=== PATIENT | female | born 1935 | race Caucasian/White ===

== ENCOUNTER 2021-03-26 21:45 | Inpatient (IN) | payer MEDICARE ==
[~2021-03-26] VITALS: Ht 165.1 cm; Wt 64.1 kg
[2021-03-26 21:46] VITALS: BP 173/69
[2021-03-26] MEDS ORDERED: FERROUS SULFAT325 MG PO (21:51)
[2021-03-26] MEDS ORDERED: VITAMIN D 22000 UNIT PO (21:52)
[2021-03-26] MEDS ORDERED: MERIBIN5 MG PO (21:52)
--- NOTE | 2021-03-26 22:04 | NUR ---
PT TO CT.
[2021-03-26 22:13] LABS: BASOPHILS 0.9 % (0-2); EOSINOPHILS 0.4 % (0-7); HEMATOCRIT 42.1 % (36.0-48.0); HEMOGLOBIN 14.4 g/dL (12-16); LYMPHOCYTES 25.3 % (15-50); MCHC 34.2 g/dL (31.0-37.0); MCV 90.7 fL (80.0-100.0); MEAN PLATELET VOLUME 9.2 fL (7.4-10.4); MONOCYTES 10.1 % (2-11); NEUTROPHILS 63.3 % (40-80); PLATELET COUNT 275 10x3/uL (130-400); RBC 4.64 10x6/uL (4.00-5.40); RDW 13.4 % (11.5-14.5); WBC 10.1 10x3/uL (4.8-10.8)
[2021-03-26 22:24] LABS: APTT 33.8 SECONDS (22.8-39.4); CALC OSMOLALITY 269 mosm/kg (275-300); CALCIUM 9.1 mg/dL (8.5-10.1); CARBON DIOXIDE 19.8 mmol/L (21.0-32.0); CHLORIDE - SERUM 102 mmol/L (98-107); CREATININE - SERUM 0.9 mg/dL (0.6-1.3); GLUCOSE 87 mg/dL (74-106); INR 1.19 (0.85-1.17); POTASSIUM - SERUM 4.7 mmol/L (3.5-5.1); SODIUM 135 mmol/L (136-145); UREA NITROGEN 14 mg/dL (7-18); eGFR NON AFRICAN AMERICAN 63 mL/min (90-120)
[2021-03-26 22:28] VITALS: BP 173/84
[2021-03-26 22:41] LABS: ALKALINE PHOSPHATASE 74 U/L (30-120); ALT (SGPT) 25 U/L (10-68); BILIRUBIN - TOTAL 1.21 mg/dL (0.2-1.3); CKMB 3.1 U/L (0.0-3.6); CREATINE KINASE 349 UL (21-215); MAGNESIUM - SERUM 2.3 mg/dL (1.8-2.4); PROTEIN - SERUM 7.6 g/dL (6.4-8.2); THYROID STIMULATING HORMONE 4.04 uIU/mL (0.36-3.74)
[2021-03-26 22:42] LABS: TROPONIN-I < 0.017 ng/mL (0.000-0.060)
[2021-03-26 23:53] VITALS: BP 164/89
[2021-03-27] MEDS ORDERED: SYNTHROID88 MCG PO (00:49)
[2021-03-27 01:13] VITALS: BP 125/74
[2021-03-27 01:20] VITALS: BP 163/70
[2021-03-27 04:31] VITALS: BP 128/66
[2021-03-27 04:46] LABS: CKMB 2.7 U/L (0.0-3.6); CREATINE KINASE 271 UL (21-215); TROPONIN-I 0.029 ng/mL (0.000-0.060)
[2021-03-27 06:48] LABS: BASOPHILS 0.2 % (0-2); EOSINOPHILS 0.6 % (0-7); HEMATOCRIT 40.8 % (36.0-48.0); HEMOGLOBIN 13.7 g/dL (12-16); IMMATURE GRANULOCYTES 0.2 % (0-5); LYMPHOCYTE ABS# 1.98 10x3/uL (1.18-3.74); LYMPHOCYTES 22.4 % (15-50); MCH 30.6 pg (26.0-34.0); MCHC 33.6 g/dL (31.0-37.0); MCV 91.1 fL (80.0-100.0); MEAN PLATELET VOLUME 10.8 fL (7.4-10.4); MONOCYTES 10.5 % (2-11); NEUTROPHIL ABS# 5.82 10x3/uL (1.56-6.13); NEUTROPHILS 66.1 % (40-80); PLATELET COUNT 284 10x3/uL (130-400); RBC 4.48 10x6/uL (4.00-5.40); RDW 13.3 % (11.5-14.5); WBC 8.8 10x3/uL (4.8-10.8)
[2021-03-27 07:20] LABS: BILIRUBIN - TOTAL 0.92 mg/dL (0.2-1.3); CALCIUM 8.5 mg/dL (8.5-10.1); CHOL - HDL RATIO 4.4 ratio (2.3-4.1); CREATININE - SERUM 0.8 mg/dL (0.6-1.3); LDL-HDL RATIO 3.1 ratio (1.5-3.5); MAGNESIUM - SERUM 2.3 mg/dL (1.8-2.4); PHOSPHOROUS 2.9 mg/dL (2.5-4.9); PROTEIN - SERUM 6.8 g/dL (6.4-8.2)
[2021-03-27 07:39] LABS: POTASSIUM - SERUM 3.8 mmol/L (3.5-5.1)
[2021-03-27 08:17] LABS: ANION GAP 18.1 mmol/L (8-16); CARBON DIOXIDE 18.7 mmol/L (21.0-32.0)
[2021-03-27 08:18] LABS: ALBUMIN 3.7 g/dL (3.4-5.0)
[2021-03-27 10:23] LABS: CREATINE KINASE 232 UL (21-215)
[2021-03-27 10:26] LABS: TROPONIN-I < 0.017 ng/mL (0.000-0.060)
--- NOTE | 2021-03-27 11:02 | NUR ---
0700 BEDSIDE SHIFT REPORT RECEIVED AWAKE ALERT REMOVED TELEMETRY FOR MRI
--- NOTE | 2021-03-27 11:04 | NUR ---
0833 RETURN FROM MRI
--- NOTE | 2021-03-27 11:20 | NUR ---
Velia SHAH AT BEDSIDE EXAMINING PATIENT FAMILY MEMBERS PRESENT ASKING DR KATE
--- NOTE | 2021-03-27 11:22 | NUR ---
1100 DR MARTINEZ ROUNDING ON PATIENT
[2021-03-27 16:14] VITALS: BP 138/72
[2021-03-27 16:40] LABS: CKMB 2.1 U/L (0.0-3.6); CREATINE KINASE 195 UL (21-215)
[2021-03-27 16:41] LABS: TROPONIN-I < 0.017 ng/mL (0.000-0.060)
[2021-03-27 20:35] VITALS: BP 156/75
[2021-03-28 01:21] VITALS: BP 135/61
[2021-03-28 05:28] VITALS: BP 143/72
--- NOTE | 2021-03-28 08:14 | NUR ---
REHAB PRESCREEN RECEIVED. PATIENT IS AMBULATING 250 FEET WITH NO ASSISTIVE DEVICE AND ONLY CONTACT GUARD ASSIST. SHE WAS DOCUMENTED TO HAVE NO SPEECH DEFICIT. HER OCCUPATIONAL THERAPY EVALUATION IS STILL PENDING, AND EVEN AFTER THIS IS COMPLETED, THE PATIENT WILL NOT SHOW A NEED FOR 3 HOURS OF THERAPY, AT LEAST 5 DAYS A WEEK. THEREFOR, SHE WILL NOT MEET THE REQUIREMENTS FOR INPATIENT REHAB. THANK YOU FOR THIS REFERRAL. GEN VILLARREAL RN CLINICAL LIAISON, INPATIENT REHAB.
--- NOTE | 2021-03-28 08:49 | NUR ---
PT RESTING WITH EYES CLOSED, AWAKENS EASILY TO NURSE ENTERING ROOM. FAMILY AT BEDSIDE. PT RR EVEN NON LABORED ON ROOM AIR. PT DENIES ANY NEEDS AT THIS TIME. NO PAIN REPORTED. CLWR.
[2021-03-28 08:54] LABS: BASOPHILS 0.6 % (0-2); EOSINOPHILS 1.4 % (0-7); HEMATOCRIT 40.3 % (36.0-48.0); HEMOGLOBIN 13.4 g/dL (12-16); LYMPHOCYTES 19.2 % (15-50); MCH 30.2 pg (26.0-34.0); MCHC 33.1 g/dL (31.0-37.0); MCV 91.2 fL (80.0-100.0); MEAN PLATELET VOLUME 8.6 fL (7.4-10.4); MONOCYTES 9.3 % (2-11); NEUTROPHILS 69.5 % (40-80); PLATELET COUNT 262 10x3/uL (130-400); RBC 4.42 10x6/uL (4.00-5.40); RDW 13.5 % (11.5-14.5); WBC 8.8 10x3/uL (4.8-10.8)
[2021-03-28 08:56] LABS: ALBUMIN 3.2 g/dL (3.4-5.0); ANION GAP 15.9 mmol/L (8-16); BILIRUBIN - TOTAL 0.58 mg/dL (0.2-1.3); CALCIUM 8.4 mg/dL (8.5-10.1); CREATININE - SERUM 0.8 mg/dL (0.6-1.3); MAGNESIUM - SERUM 2.1 mg/dL (1.8-2.4); PHOSPHOROUS 3.1 mg/dL (2.5-4.9); POTASSIUM - SERUM 3.9 mmol/L (3.5-5.1); PROTEIN - SERUM 6.4 g/dL (6.4-8.2)
[2021-03-28 09:00] VITALS: BP 148/85
[2021-03-28 10:12] VITALS: Ht 165.1 cm; Wt 64.1 kg
[2021-03-28 12:00] VITALS: BP 148/85
--- NOTE | 2021-03-28 19:10 | NUR ---
RECEIVED BEDSIDE REPORT. ROUNDING COMPLETE. PATIENT IS ALERT AND ORIENTED, RESTING COMFORTABLY IN BED. RESPIRATIONS ARE EVEN AND UNLABORED. NO S/S OF DISTRESS. NO C/O PAIN. NEEDS MET. WILL CPOC.
[2021-03-28 21:22] VITALS: BP 130/62
--- NOTE | 2021-03-28 22:46 | NUR ---
PATIENT REMOVED HER IV. PATIENT STATED,"SHE DOESN'T NEED IT ANYMORE." PATIENT REFUSES TO HAVE ANOTHER IV PLACED. SHE STATES, "SHE IS GOING HOME TOMORROW."
[2021-03-29 00:04] VITALS: BP 127/71
[2021-03-29 05:10] VITALS: BP 146/75
[2021-03-29 05:41] LABS: BASOPHILS 0.8 % (0-2); EOSINOPHILS 2.1 % (0-7); HEMOGLOBIN 13.1 g/dL (12-16); LYMPHOCYTES 24.1 % (15-50); MCH 30.9 pg (26.0-34.0); MCHC 33.6 g/dL (31.0-37.0); MCV 92.1 fL (80.0-100.0); MEAN PLATELET VOLUME 8.3 fL (7.4-10.4); MONOCYTES 8.1 % (2-11); NEUTROPHILS 64.9 % (40-80); PLATELET COUNT 261 10x3/uL (130-400); RBC 4.23 10x6/uL (4.00-5.40); RDW 13.6 % (11.5-14.5); WBC 8.8 10x3/uL (4.8-10.8)
[2021-03-29 06:25] LABS: ANION GAP 14.6 mmol/L (8-16); BILIRUBIN - TOTAL 0.6 mg/dL (0.2-1.3); CALCIUM 8.3 mg/dL (8.5-10.1); CARBON DIOXIDE 21.2 mmol/L (21.0-32.0); CREATININE - SERUM 0.9 mg/dL (0.6-1.3); MAGNESIUM - SERUM 2.1 mg/dL (1.8-2.4); PHOSPHOROUS 3.4 mg/dL (2.5-4.9); POTASSIUM - SERUM 3.8 mmol/L (3.5-5.1); PROTEIN - SERUM 6.1 g/dL (6.4-8.2)
[2021-03-29 08:00] VITALS: BP 128/67
--- NOTE | 2021-03-29 08:28 | NUR ---
PT AWAKENS EASILY TO NURSE ENTERING ROOM. RR EVEN NON LABORED ON ROOM AIR. PT AWAKE AND ALERT, ORIENTED. FAMILY AT BEDSIDE. PT GIVEN AM MEDS WITH WATER. VSS. PT DENIES ANY PAIN OR NEEDS. CLWR.
[2021-03-29] MEDS ORDERED: LISINOPRIL2.5 MG PO (10:44)
[2021-03-29] MEDS ORDERED: PLAVIX75 MG PO (10:44)
[2021-03-29] MEDS ORDERED: COREG 3.1253.125 MG PO (10:45)
--- NOTE | 2021-03-29 12:55 | NUR ---
DC INSTRUCTIONS GIVEN AT THIS TIME. PT STATES UNDERSTANDING. INSTRUCTIONS REGARDING MEDICATIONS AND FOLLOW UP APPOINTMENTS. NO QUESTIONS VOICED, SON AT BEDSIDE. PT GETTING DRESSED AND GATHERING BELONGINGS.
--- NOTE | 2021-03-29 13:10 | NUR ---
PT WHEELED TO PRIVATE VEHICLE WITH ALL BELONGINGS AND SON. NO DISTRESS NOTED ON DEPARTURE.
--- NOTE | 2021-03-29 16:38 | MORECARE ---
CASE MANAGEMENT DISCHARGE SUMMARY PATIENT: BRENDAN ONEILL TABITHA UNIT: [id number] ADM DATE: 03/26/21 AGE: 85 : 36 SEX: F ROOM/BED: D.5112 AUTHOR: MILO LEE PHYSICIAN: REFERRING PHYSICIAN: ANDRES BRIGHT MD DATE OF SERVICE: 03/29/21 Case Management Discharge Planning Summary COMMENTS ENTERED DATE: 03/29/21 11:02 CT COMMENT TYPE: Discharge Planning REVIEWER: Ximena Parks CM met with patient 03/28/21 to complete discharge planning assessment and offer availability of needed services. Patient states that she lived independently at home prior to admission. Pt verified that home environment is safe and has electricity and running water. Patient denies need for transportation and state that she has funds for services and medications if needed. PCP is Dr Mendenhall and patient uses [facility]. CM offered and discussed home health, rehab services, and need for any medical equipment. Patient did express desire for home PT at this time. Transportation home will be provided by her son Pedro Hand. Patient verbalized understanding of AMINAH, form signed and placed on chart. [facility] contacted and will follow up with patient today or tomorrow. DCP REVIEW SUMMARY ANTICIPATED D/C DATE: 03/29/2021 EXPECTED LOS : 3 CASE STATUS: DCP Complete INITIAL REVIEW: 03/29/2021 INITIAL REVIEWER: Ximena Parks FINAL DISCHARGE DISPOSITION: 06 : Discharged/Trans to Home Under Care of Organized Home Health Service in Anticipation of Skilled Care FINAL REVIEWER: Ximena Parks FINAL REVIEW DATE: 03/29/2021 [facility] Questions & Answers QUESTION: ANSWER : PATIENT: BRENDAN ONEILL ENCOUNTER: [id number] MEDICAL RECORD#: [id number] ADMISSION DATE: 03/26/2021 DISCHARGE DATE: 03/29/2021 ATTENDING MD: ANDRES TAMAYO : 1935 AGE: 85 MARITAL STATUS: M DC PLAN ID: [id number] FACILITY: [facility] PRINTED ON: 03/29/21 16:38 CT All edits/amendments must be made on the electronic document DICTATION DATE: 03/29/218 MEDICAL GRADE SHOEMAKER: JUSTIN 03/29/218 RPT#: [id number] DC DATE:03/29/21 STATUS: DIS IN [facility] [address] [place] [address] END OF REPORT
--- NOTE | 2021-03-29 21:19 | NUR ---
OT NOTE: PT COMPLETED A SHOWER WITH SBA. PT COMPLETED TB DRESSING WITH SBA. PT COMPLETED ADL MOB WITH CGA. PT COMPLETED GROOMING WITH SPV. [phone] KEYONNA CATHERINE COTA
--- NOTE | 2021-03-30 19:48 | MORECARE ---
CASE MANAGEMENT DISCHARGE SUMMARY PATIENT: BRENDAN ONEILL TABITHA UNIT: [id number] ADM DATE: 03/26/21 AGE: 85 : 36 SEX: F ROOM/BED: D.4562 AUTHOR: MILO LEE PHYSICIAN: REFERRING PHYSICIAN: ANDRES BRIGHT MD DATE OF SERVICE: 03/30/21 Case Management Discharge Planning Summary COMMENTS ENTERED DATE: 03/29/21 11:02 CT COMMENT TYPE: Discharge Planning REVIEWER: Ximena Parks CM met with patient 03/28/21 to complete discharge planning assessment and offer availability of needed services. Patient states that she lived independently at home prior to admission. Pt verified that home environment is safe and has electricity and running water. Patient denies need for transportation and state that she has funds for services and medications if needed. PCP is Dr Mendenhall and patient uses [facility]. CM offered and discussed home health, rehab services, and need for any medical equipment. Patient did express desire for home PT at this time. Transportation home will be provided by her son Pedro Hand. Patient verbalized understanding of AMINAH, form signed and placed on chart. [facility] contacted and will follow up with patient today or tomorrow. DCP REVIEW SUMMARY ANTICIPATED D/C DATE: 03/29/2021 EXPECTED LOS : 3 CASE STATUS: DCP Complete INITIAL REVIEW: 03/29/2021 INITIAL REVIEWER: Ximena Parks FINAL DISCHARGE DISPOSITION: 06 : Discharged/Trans to Home Under Care of Organized Home Health Service in Anticipation of Skilled Care FINAL REVIEWER: Ximena Parks FINAL REVIEW DATE: 03/29/2021 [facility] Questions & Answers QUESTION: ANSWER : PATIENT: BRENDAN ONEILL ENCOUNTER: [id number] MEDICAL RECORD#: [id number] ADMISSION DATE: 03/26/2021 DISCHARGE DATE: 03/29/2021 ATTENDING MD: ANDRES TAMAYO : AGE: 85 MARITAL STATUS: M DC PLAN ID: [id number] FACILITY: [facility] PRINTED ON: 03/30/21 19:48 CT All edits/amendments must be made on the electronic document DICTATION DATE: 03/30/211947 POULTICE MACHINE OPERATOR: JUSTIN 03/30/211947 RPT#: [id number] DC DATE:03/29/21 STATUS: DIS IN [facility] [address] [place] [address] END OF REPORT
== END 2021-03-29 13:18 | disposition home health service (06) | DRG 65 ==
LOC: D.ER 21:45 → D.M2 23:25
PROVIDERS: Family Medicine; ADMIT Emergency Medicine; ATTEND Emergency Medicine
DX: I63.412 Cerebral infarction due to embolism of left middle cerebral artery (principal); G81.91 Hemiplegia, unspecified affecting right dominant side; I42.9 Cardiomyopathy, unspecified; I10 Essential (primary) hypertension; E78.5 Hyperlipidemia, unspecified; E03.9 Hypothyroidism, unspecified; D50.9 Iron deficiency anemia, unspecified; M81.0 Age-related osteoporosis without current pathological fracture; R47.01 Aphasia; I35.0 Nonrheumatic aortic (valve) stenosis